=== PATIENT | female | born 1980 | race Caucasian/White ===

== ENCOUNTER 2024-05-22 18:28 | Emergency (ER) | payer BC ==
[~2024-05-22] VITALS: Ht 157.5 cm; Wt 80.5 kg
[2024-05-22 18:50] VITALS: BP 176/92; PULSE 145; RESP 20; TEMP 98.4; O2SAT 100
[2024-05-22] MEDS: NACL 0.9% 1,000 ML IV ONE ×2 (19:26→21:06)
[2024-05-22 19:48] LABS: BASOPHILS # (AUTO) 0.1 K/uL (0.00-0.22); BASOPHILS % (AUTO) 0.8 % (0.0-2.0); HEMATOCRIT 39.5 % (36-48); HEMOGLOBIN 13.4 g/dL (12.0-16.0); LYMPHOCYTES # (AUTO) 0.7 K/uL (2.5-16.5); LYMPHOCYTES % (AUTO) 7.4 % (20.5-51.1); MEAN CORPUSCULAR HEMOGLOBIN 31 pg (27-31); MEAN CORPUSCULAR HGB CONC 34 g/dL (33-37); MEAN CORPUSCULAR VOLUME 90.4 fL (80-94); MONOCYTES # (AUTO) 0.5 K/uL (0.8-1.0); MONOCYTES % (AUTO) 5.1 % (1.7-9.3); NEUTROPHILS # (AUTO) 8.3 K/uL (1.8-7.7); NEUTROPHILS % (AUTO) 86.7 % (42.2-75.2); PLATELET COUNT (AUTO) 462 K/uL (140-450); RED BLOOD CELL COUNT(AUTO) 4.36 MIL/uL (4.20-5.40); RED CELL DISTRIBUTION WIDTH 14.3 % (11.6-13.7); WHITE BLOOD COUNT (AUTO) 9.5 K/uL (4.8-10.8)
[2024-05-22 20:00] LABS: ANION GAP 19.6 (8-16); CARBON DIOXIDE 24.2 mmol/L (21-32); CREATININE 0.8 mg/dL (0.6-1.3); POTASSIUM 3.8 mmol/L (3.5-5.1)
[2024-05-22 20:06] LABS: ALBUMIN 3.9 g/dL (3.4-5.0); BILIRUBIN,DIRECT 0.3 mg/dL (0.0-0.3); TOTAL PROTEIN, SERUM 8.2 g/dL (6.4-8.2)
[2024-05-22] MEDS: ONDANSETRON 4 MG/2 ML VIAL IVP ONE (21:07)
[2024-05-22 22:24] VITALS: BP 146/92; PULSE 112; RESP 18; TEMP 98.4; O2SAT 100
== END 2024-05-22 22:24 | disposition home or self-care (01) ==
LOC: MED 18:28
DX: R11.2 Nausea with vomiting, unspecified (principal); R00.0 Tachycardia, unspecified
CPT/HCPCS: 36415; 80048; 80076; 81025; 83690; 85025; 93005; 96361; 96374; 99285; J2405; J7030